=== PATIENT | female | born 2000 | race African-American/Black ===

== ENCOUNTER 2018-02-08 13:49 | Emergency (ER) | payer OTHER ==
--- NOTE | 2018-02-08 15:36 | ULT ---
OBSTETRIC SONOGRAM TRANSABDOMINAL IMAGING 02/08/18 HISTORY: First Trimester . Pelvic pain. FINDINGS: Single intrauterine gestation in variable presentation. Amniotic fluid is within normal limits. Heart motion at 182 beats per minute. Early gestational age limits anatomic detail. No free fluid within t he pelvis. Left ovarian follicle is 2.1 cm. Right ovary is 3.4 cm. Good color and spectral doppler fl ow within each ovary. Measurements correlate with 10 weeks, 1 day gestational age giving an estimated date of delivery of . IMPRESSION: Single viable intrauterine gestation with estimated gestational age based on today's sonogram of 10 w eeks, 1 day. No significant abnormalities are demonstrated. POS: [facility]
== END 2018-02-08 15:40 | disposition home or self-care (01) ==
LOC: ERS 13:49
DX: O99.89 Other specified diseases and conditions complicating pregnancy, childbirth and the puerperium (principal); R10.32 Left lower quadrant pain; O16.1 Unspecified maternal hypertension, first trimester; O99.511 Diseases of the respiratory system complicating pregnancy, first trimester; J45.909 Unspecified asthma, uncomplicated; Z3A.08 8 weeks gestation of pregnancy
CPT/HCPCS: 76856; 93976

== ENCOUNTER 2018-05-30 21:05 | Inpatient (IN) | payer OTHER ==
[2018-05-30] MEDS ORDERED: Ondansetron PF 4 MG/2 ML Vial IVP PRN (21:25)
[2018-05-30] MEDS ORDERED: cefTRIAXone\\ROCEPHIN 1 GM in Sodium Chloride 0.9% 100 ML IVPB SCH (21:30)
[2018-05-30] MEDS ORDERED: Lactated Ringer's 1,000 ML IV SCH (21:30)
[2018-05-30] MEDS ORDERED: Acetaminophen 500 MG TAB PO PRN (23:14)
[2018-05-30] MEDS ORDERED: Zolpidem Tartrate 5 MG TAB PO PRN (23:15)
[2018-05-30] MEDS ORDERED: Morphine 4 MG/ML VIAL SLOW IVP PRN (23:46)
[2018-05-31] MEDS: Morphine 10 MG/ML VIAL SLOW IVP PRN ×3 (01:59→16:07)
[2018-05-31] MEDS: Lactated Ringer's 1,000 ML IV SCH ×7 (03:41→21:26)
[2018-05-31 06:30] LABS: #Basophils 0.1 thou/uL (0.0-0.2); #Eosinphils 0.4 thou/uL (0.0-0.7); #Lymphocytes 3.8 thou/uL (1.20-3.40); #Monocytes 1.1 thou/uL (0.11-0.59); #Neutrophils 9.6 thou/uL (1.40-6.50); %Basophils 0.4 % (0.0-1.0); %Eosinophils 2.6 % (0.0-10.0); %Lymphocytes 25.6 % (28.0-48.0); %Monocytes 7.5 % (0.0-4.0); %Neutrophils 63.9 % (31.0-61.0); Hemoglobin 8.7 g/dL (12.0-16.0); Mean Corpuscular HGB CONC 32.8 g/dL (32.0-36.0); Mean Corpuscular Hemoglobin 25.7 pg (25.0-35.0); Mean Corpuscular Volume 78.3 fL (78.0-98.0); Mean Platelet Volume 7.6 fL (7.4-10.4); Platelet Count 340 thou/uL (130-400); RBC Distribution Width 13.1 % (11.5-14.5); Red Blood Cell (RBC) Count 3.38 mill/uL (4.00-5.20)
[2018-05-31] MEDS: cefTRIAXone\\ROCEPHIN 2 GM in Sodium Chloride 0.9% 100 ML IVPB SCH (09:21)
--- NOTE | 2018-05-31 10:15 | PRG ---
DATE OF SERVICE: 05/31/2018 SUBJECTIVE: The patient is a 18-year-old who was admitted last night with pyelonephritis. Over the course of the night, the patient has remained afebrile, but reports that her CVA tenderness has worsened and has moved to both sides. She denies nausea or vomiting, was unable to sleep due to pain. The patient did receive morphine earlier in the evening with some comfort, but it wore off after about an hour and a half. Over the course of the night, the patient had wheezing, which resolved with DuoNeb treatment. OBJECTIVE: VITAL SIGNS: This morning, blood pressure 114/76, pulse of 57, respiratory rate of 20, temperature is 97.9, saturating 97% on room air. GENERAL: The patient appears to be in no acute distress. She is alert and oriented, cooperative, and pleasant to interact with. CVA tenderness has moved to her right side and seems to be worsened on the left, and has suprapubic tenderness. LABORATORY DATA: White count is up from last night to 15,000, hemoglobin 8.7, hematocrit 26.5, platelet 340,000. ASSESSMENT AND PLAN: The patient is a 18-year-old female with an intrauterine at 26 weeks and 6 days, here for pyelonephritis. She got a total of 2 g of Rocephin last night. Although, she has not had any fevers, clinical history appears to not have turned the corner and we we will keep her for one more dose of Rocephin tonight. If she remains afebrile, the patient will be discharged tomorrow. Job ID: [id number]
--- NOTE | 2018-05-31 12:51 | HP ---
OB ADMISSION/OBSERVATION PRIMARY MARGARINE MAKER: Jazmín Leonard MD CHIEF COMPLAINT: Pelvic pain and back pain and diagnosis of pyelonephritis from an outside facility. HISTORY OF PRESENT ILLNESS: The patient is a 18-year-old G1, P0 female with an intrauterine at 26th week, who presented to the emergency room in [facility] with one-day history of sharp pelvic pain and the patient reports the pains were sharp in nature and is associated with movement and activity. During the evaluation, the patient was noted to have left CVA tenderness at the outside facility and subsequently diagnosed with pyelonephritis with UA showing pyuria. The patient denies fever at home. She denies nausea, vomiting or chest pain. She does report shortness of breath at times as the patient is asthmatic and uses albuterol inhaler about twice a week. She denies diarrhea or constipation. She denies any rashes. Denies hip problems, knee problems or muscle weakness. The patient denies any vaginal bleeding or leakage of fluid and denies any urinary urgency. PAST MEDICAL HISTORY: Significant for asthma. PAST SURGICAL HISTORY: She has had left knee surgery. SOCIAL HISTORY: Denies drug, alcohol, or tobacco use. OB LABS: Unavailable at the time of dictation. MEDICATIONS: The patient received 1 L of normal saline, 1000 mg of Tylenol and 1 g of Rocephin at the outside facility, and vitamins at home, albuterol inhaler. REVIEW OF SYSTEMS: Per HPI. OB LABS: Medical record shows syphilis nonreactive. GC and Chlamydia negative, hepatitis B surface antigen negative, HIV negative, all first trimester and she is rubella immune. PHYSICAL EXAMINATION: VITAL SIGNS: Blood pressure 115/76, temperature 97.8, pulse of 69, respiratory rate of 20, O2 saturations of 98% on room air. GENERAL: She appears to be in no acute distress. She is alert and oriented, cooperative, and pleasant to interact with. HEAD: Normocephalic and atraumatic. LUNGS: Clear to auscultation bilaterally. HEART: Regular rate and rhythm. ABDOMEN: Gravid. She has tenderness bilaterally in her lower pelvis with deviation of the uterus to either side. She has left CVA tenderness to palpation, no vertebral tenderness, no right-sided CVA tenderness. EXTREMITIES: Nontender, nonedematous. : Exam has been deferred. However, it is reported to have a closed cervix by her initial ER examination. heart tracing performed. Patient is noted to have a baseline in the 140s with moderate long-term variability, and appropriate for 26-week gestation. The tocometer shows irritability, although not felt by the patient. LABORATORY DATA: CBC was drawn at the outside facility, white count of 13.8, hemoglobin of 9.4, hematocrit of 28.7, platelets of 381,000, she has 70.5% neutrophils. BMP has sodium of 138, potassium of 3.5, chloride of 109, bicarb of 21, creatinine of 0.6, glucose of 93, AST of 14, ALT of 7, calcium 9.3. urinalysis demonstrates moderate blood with moderate leukocyte esterase, 21 to 50 red blood cells, 11 to 20 white blood cells, 1+ bacteria. ASSESSMENT AND PLAN: The patient is a 18-year-old female G1, P0, with an intrauterine at 26 weeks and 5 days, with early pyelonephritis as evidenced by a slightly elevated white count, pyuria, and left costovertebral angle tenderness. The patient received 1 gram of Rocephin at the outlying facility. I will give her 1 more gram of Rocephin here and admit her to observation to evaluate for fever overnight. Should the patient remain afebrile through the night, the patient will be discharged to home tomorrow with instructions to follow up with her primary OB in 1 to 2 days and with outpatient antibiotics. at this time is reassuring for gestational age and Dr. Leonard has been made aware of Albrecht' presence and will be updated in the morning. Job ID: [id number]
[2018-06-01] MEDS: Lactated Ringer's 1,000 ML IV SCH ×3 (01:30→11:06)
[2018-06-01] MEDS ORDERED: HYDROcodone/Acetaminophen 5/325 mg Tablet PO PRN ×2 (01:38→05:19)
[2018-06-01] MEDS ORDERED: Cyclobenzaprine 10 MG TAB PO PRN (01:38)
[2018-06-01 08:04] VITALS: BP 109/65; TEMP 98.3
--- NOTE | 2018-06-01 10:47 | PRG ---
DATE OF SERVICE: 06/01/2018 SUBJECTIVE: The patient has had worsening back pain overnight, left more than right and includes the entirety of her back. She reports the pain is not radiating and is constant in nature. She does report this pain in her upper back is different from the pain in her lower back. She denies any vaginal bleeding or other concerns. Her baby continues to move well. The patient received a dose of Flexeril and [place] overnight which brought her pain from 10 to 7. Prior to that, she was on Morphine, which she reports did not help. PHYSICAL EXAMINATION: VITAL SIGNS: The patient has remained afebrile overnight and throughout her stay. Temperature 98.4, pulse 76, respiratory rate 20, blood pressure 130/62. GENERAL: Awake, alert, in no acute distress. LUNGS: Nonlabored. ABDOMEN: Soft and nontender. BACK: Tenderness to palpation from her scapula all the way down to her low back on her left side, no CVA tenderness on her right, but she does have CVA tenderness on the left. ASSESSMENT AND PLAN: A 18-year-old in her 26th week of admitted for pyelonephritis. She has received Rocephin and continued to remain afebrile. Clinically, her pain has worsened; however, it appears to be more of musculoskeletal in origin. We will continue her on Flexeril and increase her dose of [place] to 2 tablets to see if that decreases her pain. She will likely be able to be discharged home later today with prescription for Keflex 500 mg b.i.d. for 7 days and to follow up with Dr. Leonard next week. The patient is in agreement with this. Job ID: [id number] [facility]
[2018-06-01] MEDS: cefTRIAXone\\ROCEPHIN 2 GM in Sodium Chloride 0.9% 100 ML IVPB SCH (10:59)
--- NOTE | 2018-06-04 08:32 | DIS ---
DATE OF ADMISSION: 05/31/2018 DATE OF DISCHARGE: 06/01/2018 ADMITTING DIAGNOSES: 1. Pyelonephritis. 2. Intrauterine at 26 weeks. DISCHARGE DIAGNOSES: 1. Pyelonephritis. 2. Intrauterine at 26 weeks. PROCEDURE: None. COMPLICATIONS: None. HOSPITAL COURSE: The patient is a 18-year-old G1, P0 female who was transferred from [facility] with concerns of pyelonephritis and , was admitted for IV antibiotic administration. On hospital day #2, the patient continues to have significant CVA tenderness with new onset tenderness on the opposite side. Decision at that time was that the patient remained afebrile, was to continue IV antibiotic administration. Today is hospital day #3. She does feel a lot better, though she continues to have some CVA tenderness and continues to be afebrile. PHYSICAL EXAMINATION: The patient on the morning of discharge: VITAL SIGNS: Blood pressure 109/65, temperature 96.3, pulse 56, respiratory rate of 20, saturating 96% on room air. GENERAL: She appears to be in no acute distress. She is alert and oriented, cooperative, and pleasant to interact with. MUSCULOSKELETAL: She does have upper back muscle tenderness, which is new from admission, likely due to prolonged stay in her bed. Her CVA tenderness is improved from my previous exam; though it is still present. The patient is being discharged to home with Keflex 500 mg to be taken twice a day for the next week. She also has instructions to seek medical attention should she experience fever, experience any pain, rigors. She will follow up with her Primary OB, Dr. Leonard. Job ID: [id number]
== END 2018-06-01 11:17 | disposition home or self-care (01) | DRG 832 ==
LOC: L&D/OP 21:05 → 3SE 05-31 00:23
PROVIDERS: ADMIT Obstetrics & Gynecology; ATTEND Obstetrics & Gynecology
DX: O23.02 Infections of kidney in pregnancy, second trimester (principal); N12 Tubulo-interstitial nephritis, not specified as acute or chronic; Z3A.26 26 weeks gestation of pregnancy; J45.909 Unspecified asthma, uncomplicated; O99.512 Diseases of the respiratory system complicating pregnancy, second trimester; Z79.51 Long term (current) use of inhaled steroids
CPT/HCPCS: 36415; 85025; 94640; 99285; J0696; J2270; J2405; J7050; J7620

== ENCOUNTER 2018-06-18 15:27 | Inpatient (IN) | payer OTHER ==
[2018-06-18 16:01] VITALS: BMI 25.4
[2018-06-18 17:43] LABS: Bilirubin Negative (Negative); Blood, Urine Negative (Negative); Clarity CLEAR (Clear); Glucose, Urine (Dipstick) Negative (Negative); Leukocyte Moderate (Negative); Nitrite Negative (Negative); Protein, Urine (Dipstick) Negative (Neg-Trace); Specific Gravity, Urine 1.018 (1.002-1.036)
[2018-06-18 17:45] LABS: Bacteria/HPF None Seen HPF (None Seen); RBC/HPF 0-3 HPF (0-3)
[2018-06-18 17:57] LABS: Hyaline Casts/LPF NONE SEEN LPF (0-3 Hyaline)
[2018-06-18 17:58] LABS: Renal Epithelial None Seen HPF (0-3); Transitional Epithelial NONE SEEN HPF (0-3)
[2018-06-18] MEDS ORDERED: Zolpidem Tartrate 5 MG TAB PO PRN (18:43)
[2018-06-18] MEDS ORDERED: Acetaminophen 325 MG TAB PO PRN (18:43)
[2018-06-18] MEDS ORDERED: HYDROcodone/Acetaminophen 5/325 mg Tablet PO PRN (18:43)
[2018-06-18] MEDS ORDERED: Ondansetron ODT 4 MG TAB PO PRN (18:43)
--- NOTE | 2018-06-18 18:54 | HP ---
TIME OF ADMISSION: 1815 hours. REASON FOR ADMISSION: Pyelonephritis at 29 weeks. HISTORY OF PRESENT ILLNESS: Ms. Albrecht presents for a second admission for pyelonephritis in this . She was previously admitted on the 31 of May. The patient reports worsening of her left flank pain and gross hematuria at this time. She denies rupture of membranes. She reports an active fetus. She sees Dr. Jazmín Leonard at [facility]. DIRECTOR ADVERTISING HISTORY: G1, P0. JENA placed her at 29-1/2 weeks' gestation. Antepartum records not available on the unit. PAST MEDICAL HISTORY: Pyelonephritis at 26 weeks. Urine culture was no growth. The patient was discharged home on Keflex. PAST SURGICAL HISTORY: Left knee surgery. SOCIAL HISTORY: Denies tobacco, alcohol, or IV drug use. MEDICATIONS: vitamins. FAMILY HISTORY: Noncontributory. REVIEW OF SYSTEMS: Noncontributory. PHYSICAL EXAMINATION: GENERAL: White female. VITAL SIGNS: Temperature 98.5, respirations 18, pulse 96, and blood pressure 118/72. HEENT: Within normal limits. LUNGS: Clear to auscultation bilaterally. HEART: Regular rate and rhythm. BREASTS: No masses bilaterally. ABDOMEN: Soft. She has some guarding with deep palpation in the left lower quadrant and moderate CVAT on that side. The patient has significant vaginal discharge noted at the time of catheterization. PELVIC: Deferred. CERVICAL: Deferred. EXTREMITIES: Without clubbing, cyanosis, or edema. LABORATORY DATA: The patient has a white count of 14.9, which is higher than it was with her previous admission with 78% neutrophils, hematocrit of 30%. Basic metabolic within normal limits. Cath UA reveals moderate leukocyte esterase, 11 to 20 wbc's, no rbc's, and positive for trichomonads on the urinalysis. VPIII is pending. RADIOLOGY REPORTS: Ultrasound for obstetric as well as renal ultrasound is pending at this time. IMPRESSION: 1. Probable pyelonephritis, early without fever at this time, in early third trimester , recurrent. 2. Likely Trichomonas vaginitis, although urinalysis is not diagnostic for this and await VPIII results. PLAN: 1. Admission. 2. IV hydration. 3. IV Rocephin. 4. IV gentamicin. 5. Urine culture sent on current specimen, although the patient received Rocephin IM in [facility]. 6. Followup ultrasound results. Job ID: [id number]
[2018-06-18] MEDS: Sodium Chloride 0.9% 1,000 ML IV SCH (19:35)
--- NOTE | 2018-06-18 19:59 | ULT ---
RENAL ULTRASOUND: 06/18/2018 PROVIDED CLINICAL HISTORY: Recurrent pyelonephritis. FINDINGS: The right kidney measures about 10.9 x 4.9 x 6.1 cm and demonstrates moderate hydronephrosis. No dacia dence for mass. The left kidney measures about 9.5 x 5.4 x 5.3 cm and demonstrates no evidence for hydronephrosis or mass. The urinary bladder demonstrates minimal mobile debris. No wall thickening or other sonographic abno rmality is apparent. Bilateral ureteral jets are seen. Post void images demonstrate persistent right-sided hydronephrosis. There is a post void residual of approximately 1.9 mL. IMPRESSION: Right hydronephrosis. POS: [facility]
--- NOTE | 2018-06-18 20:03 | ULT ---
OB ULTRASOUND: 06/18/2018 PROVIDED CLINICAL HISTORY: Pyelonephritis. FINDINGS: A single live intrauterine gestation is documented in a cephalic presentation, with a heart rate of 1 53 beats per minute. The placenta is anteriorly located without evidence for previa. anatomic survey is normal, with the head, intracranial structures, four chamber heart, stomach, situs, kidney s, bladder, umbilical cord, cord insertion, spine, lips, nose, and extremities demonstrated. Estimat ed gestational age, based on today's examination, is 29 weeks 2 days. Estimated weight is 1188 g, plus or minus 176 g. Amniotic fluid index is 16.1. BIOMETRY: BPD: 30 weeks 3 days (7.57 cm). HEAD CIRCUMFERENCE: 30 weeks 5 days (28.02 cm). ABDOMIANL CIRCUMFERENCE: 27 weeks 4 days (23.23 cm). FEMUR LENGTH: 28 weeks 0 days (5.26 cm). IMPRESSION: 1. A single live intrauterine gestation, as described above. 2. Head circumference to abdominal circumference ratio is somewhat elevated, which could reflect justin wth restriction, though ultrasound dates are concordant with clinical dates. POS: [facility]
[2018-06-18] MEDS: HYDROcodone/Acetaminophen 5/325 mg Tablet PO PRN (21:03)
[2018-06-18] MEDS: Gentamicin Sulfate 80 MG in Premix Bag 1 BAG IVPB SCH (21:06)
[2018-06-19] MEDS: Sodium Chloride 0.9% 1,000 ML IV SCH ×3 (06:26→20:28)
[2018-06-19] MEDS: cefTRIAXone\\ROCEPHIN 2 GM in Sodium Chloride 0.9% 100 ML IVPB SCH (06:27)
[2018-06-19 06:48] LABS: #Basophils 0.1 thou/uL (0.0-0.2); #Eosinphils 0.3 thou/uL (0.0-0.7); #Lymphocytes 3.4 thou/uL (1.20-3.40); #Neutrophils 8.8 thou/uL (1.40-6.50); %Basophils 0.8 % (0.0-1.0); %Eosinophils 2.3 % (0.0-10.0); %Lymphocytes 24.9 % (28.0-48.0); %Monocytes 7.5 % (0.0-4.0); %Neutrophils 64.6 % (31.0-61.0); Hemoglobin 8.2 g/dL (12.0-16.0); Mean Corpuscular HGB CONC 31.3 g/dL (32.0-36.0); Mean Corpuscular Hemoglobin 23.5 pg (25.0-35.0); Mean Corpuscular Volume 75.3 fL (78.0-98.0); Mean Platelet Volume 7.4 fL (7.4-10.4); Platelet Count 320 thou/uL (130-400); RBC Distribution Width 13.2 % (11.5-14.5); Red Blood Cell (RBC) Count 3.47 mill/uL (4.00-5.20); White Blood Cell (WBC) Count 13.6 thou/uL (4.8-10.8)
[2018-06-19 07:09] LABS: Anion Gap 13 mmol/L (10-20); BUN (Urea Nitrogen) 7 mg/dL (7.0-18.7); Calc. Creatinine Clearance 165 mL/min (70-130); Calcium 8.4 mg/dL (7.8-10.44); Carbon Dioxide 18 mmol/L (22-29); Chloride 108 mmol/L (98-107); Estimated GFR-MDRD Greater than 90; Glucose 72 mg/dL (70-105); Potassium 3.6 mmol/L (3.5-5.1); Sodium 135 mmol/L (136-145)
[2018-06-19] MEDS ORDERED: Iron Sucrose Complex 500 MG in Sodium Chloride 0.9% 250 ML 250 ML IVPB SCH (07:15)
--- NOTE | 2018-06-19 08:23 | PRG ---
DATE OF SERVICE: 06/19/2018 SUBJECTIVE: The patient is admitted for pyelonephritis at 29 weeks gestation. The patient reports that her pain is much better. She feels much better than yesterday. OBJECTIVE: VITAL SIGNS: Stable. She has been afebrile since admission, pulse 85, respirations 18, temperature 98.6, blood pressure 118/72. FHTs 140s. ABDOMEN: Physical exam reveals decreased tenderness in the left lower quadrant and decreased CVA tenderness. LABORATORY DATA: Vaginitis screen was positive for Trichomonas. The patient's hematocrit was 26%. White count is down to 13,000 this morning. IMPRESSION: 1. Pyelonephritis, second episode, early third trimester. 2. Trichomonas vaginitis. 3. Iron deficiency anemia. PLAN: 1. Continue Rocephin and gentamicin. Anticipate possible discontinuation at 48 hours of oral medicines on discharge and suppression for the rest of the . Await urine culture results. 2. I will treat Trichomonas vaginitis with Flagyl 500 p.o. x2 doses. 3. We will administer IV iron 500 mg for iron deficiency anemia. Job ID: [id number]
[2018-06-19] MEDS: metroNIDAZOLE 500 MG TAB PO SCH ×2 (08:53→21:45)
[2018-06-19] MEDS: Gentamicin Sulfate 80 MG in Premix Bag 1 BAG IVPB SCH ×2 (08:53→21:45)
[2018-06-19] MEDS: HYDROcodone/Acetaminophen 5/325 mg Tablet PO PRN ×2 (09:49→20:33)
[2018-06-19] MEDS: Iron, Sodium Ferric Gluconate 250 MG in Sodium Chloride 0.9% 250 ML 250 ML IVPB SCH ×2 (11:07→23:09)
[2018-06-19] MEDS: Ondansetron PF 4 MG/2 ML Vial IVP PRN (16:41)
[2018-06-20] MEDS: Ondansetron PF 4 MG/2 ML Vial IVP PRN (04:52)
[2018-06-20] MEDS: cefTRIAXone\\ROCEPHIN 2 GM in Sodium Chloride 0.9% 100 ML IVPB SCH (06:00)
[2018-06-20] MEDS: Sodium Chloride 0.9% 1,000 ML IV SCH ×3 (06:11→18:42)
--- NOTE | 2018-06-20 06:50 | PDOC.EVN ---
Event Note - Event Note Event Note: HD 2 ABX: Rocephin and Gent DX: Suspected Pyelo, Trich vaginalis; 29 week Patient is a 18yo G1 at 29-30 weeks with suspected pyelo (#2). Renal sono was negative. S, States she feels much better, Good FM, npo UTI SXS O. Flagyl has been given. Afebrile since admit BPs stable UCX with NGTD PE: NAD Abd soft, NT A/P: Suspected pyelo at admit but UCX NGTD: Plan: 1. continue emperic ABX until UCX back today as final 2. Likely keep today as this is second RX for presumed pyelo 3. WBC pending this am...WBC 13 on admit 4. Plan D/W patient and family member in room Likely send home on macrobid suppression...RX in chart
[2018-06-20 07:40] LABS: #Basophils 0.1 thou/uL (0.0-0.2); #Eosinphils 0.5 thou/uL (0.0-0.7); #Lymphocytes 2.3 thou/uL (1.20-3.40); #Monocytes 1.3 thou/uL (0.11-0.59); #Neutrophils 12.8 thou/uL (1.40-6.50); %Basophils 0.7 % (0.0-1.0); %Lymphocytes 13.5 % (28.0-48.0); %Monocytes 7.6 % (0.0-4.0); %Neutrophils 75.3 % (31.0-61.0); Hemoglobin 9.2 g/dL (12.0-16.0); Mean Corpuscular HGB CONC 31.9 g/dL (32.0-36.0); Mean Corpuscular Hemoglobin 24.2 pg (25.0-35.0); Mean Corpuscular Volume 75.8 fL (78.0-98.0); Mean Platelet Volume 7.9 fL (7.4-10.4); Platelet Count 377 thou/uL (130-400); RBC Distribution Width 13.5 % (11.5-14.5); Red Blood Cell (RBC) Count 3.81 mill/uL (4.00-5.20)
--- NOTE | 2018-06-20 08:00 | PDOC.EVN ---
Event Note - Event Note Event Note: Lab Check: This AM WBC was 17, with increased PMNs. We will recheck tomorrow AM run
--- NOTE | 2018-06-20 08:08 | PDOC.EVN ---
Event Note - Event Note Event Note: Chart review reveals no GC or chlamydia at admit. I have ordered a PCR for both via voided sample. Dr Altman to assume care today
[2018-06-20] MEDS: Gentamicin Sulfate 80 MG in Premix Bag 1 BAG IVPB SCH ×2 (09:02→21:33)
[2018-06-20] MEDS: HYDROcodone/Acetaminophen 5/325 mg Tablet PO PRN ×2 (10:14→18:41)
[2018-06-21] MEDS: Sodium Chloride 0.9% 1,000 ML IV SCH (02:44)
[2018-06-21] MEDS: cefTRIAXone\\ROCEPHIN 2 GM in Sodium Chloride 0.9% 100 ML IVPB SCH (06:00)
[2018-06-21 06:27] LABS: #Basophils 0.1 thou/uL (0.0-0.2); #Eosinphils 0.4 thou/uL (0.0-0.7); #Lymphocytes 2.5 thou/uL (1.20-3.40); #Neutrophils 7.7 thou/uL (1.40-6.50); %Basophils 0.6 % (0.0-1.0); %Eosinophils 3.7 % (0.0-10.0); %Lymphocytes 21.5 % (28.0-48.0); %Monocytes 8.7 % (0.0-4.0); %Neutrophils 65.4 % (31.0-61.0); Hemoglobin 7.8 g/dL (12.0-16.0); Mean Corpuscular HGB CONC 32.1 g/dL (32.0-36.0); Mean Corpuscular Hemoglobin 24.5 pg (25.0-35.0); Mean Corpuscular Volume 76.3 fL (78.0-98.0); Mean Platelet Volume 7.6 fL (7.4-10.4); Platelet Count 290 thou/uL (130-400); RBC Distribution Width 13.4 % (11.5-14.5); Red Blood Cell (RBC) Count 3.18 mill/uL (4.00-5.20); White Blood Cell (WBC) Count 11.7 thou/uL (4.8-10.8)
[2018-06-21] MEDS: HYDROcodone/Acetaminophen 5/325 mg Tablet PO PRN (06:38)
[2018-06-21 08:26] VITALS: BP 108/70; TEMP 98.1
[2018-06-21] MEDS: Gentamicin Sulfate 80 MG in Premix Bag 1 BAG IVPB SCH (10:21)
[2018-06-22 03:20] LABS: Chlamydia by PCR Not Detected (NotDetected); GC by PCR Not Detected (NotDetected)
--- NOTE | 2018-06-22 04:11 | DIS ---
DATE OF ADMISSION: 06/18/2018 DATE OF DISCHARGE: 06/21/2018 DIAGNOSES: 1. A 29-week intrauterine . 2. Pyelonephritis. 3. Trichomonas. PROCEDURES: 1. ultrasound. 2. Renal ultrasound. 3. IV antibiotics. HOSPITAL COURSE: The patient was admitted on 06/18/2018 for probable pyelonephritis after presenting with back pain and abdominal pain. She was afebrile, but has been here before for similar complaints. She was also incidentally positive for trichomonas on VPIII and urinalysis, and was treated. On hospital day #3, she remained afebrile and her white count improved after an initial spike to 17,000 back down to 11.7. Her urine culture had no growth after 48 hours and the patient improved clinically and was meeting milestones for discharge. DISCHARGE MEDICATIONS: Macrobid 100 mg daily for suppression. FOLLOWUP: With Dr. Leonard next week as scheduled or before that if needed. Job ID: [id number]
--- NOTE | 2018-06-22 10:46 | PDOC.EVN ---
Event Note - Event Note Event Note: [facility]: Post-discharge note: Lab check: I was asked to follow up on GC and CHL PCR from 06/20. Results checked now by me...results are both not "not detected"
== END 2018-06-21 12:58 | disposition home or self-care (01) | DRG 832 ==
LOC: L&D/OP 15:27 → L&D 18:48 → 3SW 20:04
PROVIDERS: ADMIT Obstetrics & Gynecology; ATTEND Obstetrics & Gynecology
DX: O23.03 Infections of kidney in pregnancy, third trimester (principal); N12 Tubulo-interstitial nephritis, not specified as acute or chronic; O98.313 Other infections with a predominantly sexual mode of transmission complicating pregnancy, third trimester; A59.9 Trichomoniasis, unspecified; O99.013 Anemia complicating pregnancy, third trimester; D50.9 Iron deficiency anemia, unspecified; Z3A.29 29 weeks gestation of pregnancy
CPT/HCPCS: 36415; 76770; 76805; 80048; 85025; 87086; 87480; 87491; 87510; 87591; 87660; A4353; J0696; J1580; J2405; J2916; J7050

== ENCOUNTER 2018-08-27 02:10 | Inpatient (IN) | payer OTHER ==
[2018-08-27 02:54] VITALS: BMI 26.7
[2018-08-27 03:21] LABS: Amnisure Internal Control QC ACCEPTABLE (ACCEPTABLE); Amnisure Test No Membranes Rupture (No Rupture)
[2018-08-27 03:44] LABS: #Basophils 0.1 thou/uL (0.0-0.2); #Eosinphils 0.4 thou/uL (0.0-0.7); #Lymphocytes 2.5 thou/uL (1.20-3.40); #Neutrophils 11.1 thou/uL (1.40-6.50); %Basophils 0.6 % (0.0-1.0); %Eosinophils 2.8 % (0.0-10.0); %Lymphocytes 16.3 % (28.0-48.0); %Monocytes 6.9 % (0.0-4.0); %Neutrophils 73.3 % (31.0-61.0); Hemoglobin 11.4 g/dL (12.0-16.0); Mean Corpuscular HGB CONC 33.8 g/dL (32.0-36.0); Mean Corpuscular Volume 80.1 fL (78.0-98.0); Mean Platelet Volume 8.2 fL (7.4-10.4); Platelet Count 331 thou/uL (130-400); RBC Distribution Width 18.4 % (11.5-14.5); Red Blood Cell (RBC) Count 4.22 mill/uL (4.00-5.20); White Blood Cell (WBC) Count 15.1 thou/uL (4.8-10.8)
[2018-08-27 03:45] LABS: Bilirubin Negative (Negative); Blood, Urine Negative (Negative); Clarity CLEAR (Clear); Glucose, Urine (Dipstick) Negative (Negative); Leukocyte Large (Negative); Nitrite Negative (Negative); Protein, Urine (Dipstick) Negative (Neg-Trace); Specific Gravity, Urine 1.014 (1.002-1.036)
[2018-08-27 03:48] LABS: Bacteria/HPF None Seen HPF (None Seen); Hyaline Casts/LPF 0-3 HYALINE CAST LPF (0-3 Hyaline); Pathc Cast-AUWi Flag 0.43 (0-2.49); Squamous Epithelial 0-3 HPF (0-3); WBC/HPF 21-50 HPF (0-3)
[2018-08-27 03:51] LABS: Oval Fat Bodies/HPF None Seen HPF (None Seen); Renal Epithelial None Seen HPF (0-3); Sperm/HPF None Seen HPF (None Seen); Transitional Epithelial NONE SEEN HPF (0-3); Trichomonas/HPF None Seen HPF (None Seen); Yeast-All Forms None Seen HPF (None Seen)
[2018-08-27 04:05] LABS: ALT (SGPT) 14 U/L (8-55); AST (SGOT) 19 U/L (5-34); Albumin 3.9 g/dL (3.5-5.0); Alkaline Phosphatase 188 U/L (40-150); Anion Gap 13 mmol/L (10-20); BUN (Urea Nitrogen) 12 mg/dL (7.0-18.7); Bilirubin, Total 0.4 mg/dL (0.2-1.2); Calc. Creatinine Clearance 143 mL/min (70-130); Calcium 9.7 mg/dL (7.8-10.44); Carbon Dioxide 21 mmol/L (22-29); Chloride 106 mmol/L (98-107); Estimated GFR-MDRD Greater than 90; Globulin 3.3 g/dL (2.4-3.5); Glucose 71 mg/dL (70-105); Potassium 4.3 mmol/L (3.5-5.1); Protein, Total 7.2 g/dL (6.0-8.3); Sodium 136 mmol/L (136-145)
[2018-08-27] MEDS ORDERED: NS / Oxytocin 40 units/1000ml 1,000 ML IV PRN (04:16)
[2018-08-27] MEDS ORDERED: Meperidine HCl/PF 25 MG/ML VIAL IM/IV PRN (04:16)
[2018-08-27] MEDS ORDERED: Promethazine HCl 25 MG/ML VIAL IM PRN ×2 (04:16→06:04)
[2018-08-27] MEDS ORDERED: Butorphanol Tartrate 1 MG/ML VIAL SLOW IVP PRN (04:16)
[2018-08-27] MEDS ORDERED: Ondansetron PF 4 MG/2 ML Vial IVP PRN ×3 (04:16→13:50)
[2018-08-27] MEDS ORDERED: Zolpidem Tartrate 5 MG TAB PO PRN ×2 (04:16→13:50)
[2018-08-27] MEDS ORDERED: Lidocaine 1% (PF) 30 ML VIAL SC PRN (04:16)
[2018-08-27] MEDS ORDERED: HYDROcodone/Acetaminophen 5/325 mg Tablet PO PRN ×3 (04:16→13:50)
[2018-08-27] MEDS ORDERED: Acetaminophen 500 MG TAB PO PRN (04:16)
[2018-08-27] MEDS ORDERED: Ibuprofen 800 MG TAB PO PRN (04:16)
--- NOTE | 2018-08-27 04:25 | PDOC.LDHP ---
Labor and Delivery H&P Chief complaint: contractions, loss of fluid HPI: 18 yo BF presents c/o ?LOF x 24 hrs, now with UCs q 5 mins. Current gestational age (weeks): 39 Due date: 08/31/18 Dating criteria: second trimester ultrasound Grav: 1 Para: 0 OB History Details: PNC with Dr. Leonard, elevated BPs over last 2 visits. Current complications: gestational hypertension Abnormal US findings: No Past Medical History: asthma Current medications: pre-juve vitamins, other (inhaler) Previous surgical history: other (left knee) Allergies/Adverse Reactions: Allergies Allergy/AdvReac Type Severity Reaction Status Date / Time [place] And Derivatives Allergy Intermediate Rash Verified 08/27/18 02:54 Penicillins Allergy Intermediate Rash Verified 08/27/18 02:54 Social history: none - Physical Exam Abnormal vital signs: initial BP= 161/111 General: NAD Lungs: nonlabored breathing Abdomen: gravid Extremeties: trace edema FHT: category 1, variability present [place] contractions every: q 3-5 mins - Vaginal Exam cm dilated: 2 Effacement: 90% Station: -1 - OB Labs Blood type: AB RH: negative Antibody Screen: negative HIV: negative RPR: negative 1 hour GCT: negative GBS: positive - Assessment L&D Assessment: term patient in labor (initial elevated BPs; CBC, CHEM20 and UA negative) - Plan Plan: admit to L&D, labor augmentation if indicated (Watch BP carefully, may require MgS04 if persists), GBS antibiotic prophylaxis
[2018-08-27] MEDS ORDERED: Lactated Ringer's 1,000 ML IV SCH (04:30)
[2018-08-27] MEDS: Lactated Ringer's 1,000 ML IV SCH ×2 (05:06→09:51)
[2018-08-27] MEDS ORDERED: Fentanyl 4 mcg/Bup 0.1% Cadd 100 ML ONE (05:18)
[2018-08-27] MEDS ORDERED: Lactated Ringer's 500 ML IV PRN (06:04)
[2018-08-27] MEDS ORDERED: diphenhydrAMINE 50 MG/ML VIAL IVP PRN (06:04)
[2018-08-27] MEDS ORDERED: ePHEDrine/0.9% NaCl/PF SYRINGE 50 mg/10 ml SLOW IVP PRN (06:04)
[2018-08-27] MEDS ORDERED: Naloxone HCl 0.4 mg/ml Vial IVP PRN ×2 (06:04)
[2018-08-27] MEDS ORDERED: Eucerin (Mineral Oil/Petrolatum,White) 30 gm Jar TOP PRN (06:04)
[2018-08-27] MEDS ORDERED: Acetaminophen 325 MG TAB PO PRN (06:04)
[2018-08-27] MEDS ORDERED: Fentanyl 4 mcg/Bupivacaine 0.1% Cassette 100 ML EPIDURAL SCH (06:15)
[2018-08-27] MEDS ORDERED: Communication Order-Pharmacy FS SCH (06:15)
[2018-08-27 08:03] LABS: HBSAg Index 0.19 S/CO (0-0.99); Hep B Surf Ag Non-Reactive S/CO (NonReactive)
[2018-08-27 08:04] LABS: Syphilis Antibody Nonreactive (Nonreactive); Syphilis Antibody Index 0.23 S/CO (<1.00 Non-Reactive)
[2018-08-27] MEDS ORDERED: Bupivacaine/Epinephrine 0.25% 30 ML VIAL ONE (11:50)
[2018-08-27] MEDS ORDERED: Lidocaine 1% (PF) 30 ML VIAL ONE (12:38)
--- NOTE | 2018-08-27 13:34 | OP ---
DATE OF PROCEDURE: 08/27/2018 TIME OF SERVICE: 12:45. PREDELIVERY DIAGNOSIS: Term labor imminent delivery. POSTDELIVERY DIAGNOSIS: Term labor imminent delivery. PROCEDURES PERFORMED: Spontaneous vaginal delivery with first-degree midline laceration. ANESTHESIA: Epidural. ESTIMATED BLOOD LOSS: 200 mL. COMPLICATIONS: None. OPERATIVE FINDINGS: 1. Vigorous male infant, Apgars and weight are pending, to nursery, delivered at 12:29. 2. Placenta delivered intact, 3-vessel cord at approximately 12:34. 3. Repair of first-degree midline laceration with [id number] of 2-0 chromic suture. DISPOSITION: Routine Recovery. DESCRIPTION OF PROCEDURE: The patient had a rapid progression of labor. Once she reached complete, complete. Dr. Leonard had been called for delivery. However, the patient was complete and +4 to 5 station, ready to push. I was called at 12:28 and presented to the room at 12:29. As soon as I got the gloves on, the patient delivered OA. No nuchal cord. Spontaneously in a controlled manner was placed on the maternal abdomen. After approximately 3 minutes, the cord was clamped and cut. Cord blood sample was obtained. Placenta delivered spontaneously, was noted to be grossly normal, intact, and 3-vessel. Inspection of the vagina revealed a first-degree midline laceration, which was repaired using a 2-0 chromic. The patient was entered into routine post delivery care. Job ID: [id number]
[2018-08-27] MEDS ORDERED: Milk Of Magnesia 30 ML UDCUP PO PRN (13:50)
[2018-08-27] MEDS ORDERED: diphenhydrAMINE 25 MG CAP PO PRN (13:50)
[2018-08-27] MEDS ORDERED: Lanolin Ointment 7 GM TUBE TOP PRN (13:50)
[2018-08-27] MEDS ORDERED: Bisacodyl 10 MG SUPP PR PRN (13:50)
[2018-08-27] MEDS ORDERED: NS / Oxytocin 40 units/1000ml 1,000 ML IV SCH (13:50)
[2018-08-27] MEDS ORDERED: Adacel (T-DAP) 0.5 ML SYRINGE IM ONE (13:50)
[2018-08-27] MEDS: Ibuprofen 800 MG TAB PO SCH (16:05)
[2018-08-27] MEDS: NS w/ Oxytocin 10 units 500 ML IV SCH (16:06)
[2018-08-27] MEDS: Ferrous Sulfate 325 MG TAB PO SCH (17:04)
[2018-08-27] MEDS: HYDROcodone/Acetaminophen 5/325 mg Tablet PO PRN (17:19)
--- NOTE | 2018-08-28 07:28 | PDOC.PP ---
Post Progress Note Post Day #: 1 PO intake tolerated: yes Flatus: yes Ambulation: yes Vital Signs (12 hours) Temp Pulse Resp BP Pulse Ox 08/27/18 20:00 98 08/27/18 19:58 98.2 F 62 18 145/85 H 98 Weight Weight 151 lb - Physical Examination Abdominal: + bowel sounds, lochia, no distention, appropriately TTP Result Diagrams: 08/27/18 03:27 08/27/18 03:27 Additional Labs: Post Labs Blood Type AB POSITIVE 08/27/18 03:31 Hep Bs Antigen Non-Reactive S/CO (NonReactive) 08/27/18 03:27 - Assessment/Plan post day 1-doing well. Routine care. Discharge in AM.
[2018-08-28] MEDS: HYDROcodone/Acetaminophen 5/325 mg Tablet PO PRN (07:38)
[2018-08-28] MEDS: Docusate Calcium (SURFAK) 240 MG CAP PO SCH ×3 (07:39→21:39)
[2018-08-28] MEDS: Ibuprofen 800 MG TAB PO SCH ×4 (07:39→21:39)
[2018-08-28] MEDS: Prenatal Vitamin 1 TAB PO SCH (07:39)
[2018-08-28] MEDS: Lactated Ringer's 1,000 ML IV SCH ×3 (07:44→23:53)
[2018-08-28] MEDS: NS w/ Oxytocin 10 units 500 ML IV SCH (07:46)
[2018-08-28] MEDS: Ferrous Sulfate 325 MG TAB PO SCH ×2 (11:51→15:51)
[2018-08-29] MEDS: Ibuprofen 800 MG TAB PO SCH (05:04)
[2018-08-29] MEDS: NS w/ Oxytocin 10 units 500 ML IV SCH (06:09)
[2018-08-29] MEDS: Lactated Ringer's 1,000 ML IV SCH (06:09)
--- NOTE | 2018-08-29 08:03 | PDOC.PP ---
Post Progress Note Flatus: yes Ambulation: yes Vital Signs (12 hours) Temp Pulse Resp BP Pulse Ox 08/28/18 20:14 98.0 F 74 16 117/69 97 Weight Weight 151 lb - Physical Examination Abdominal: + bowel sounds, lochia, no distention, appropriately TTP Result Diagrams: 08/27/18 03:27 08/27/18 03:27 Additional Labs: Post Labs Blood Type AB POSITIVE 08/27/18 03:31 Hep Bs Antigen Non-Reactive S/CO (NonReactive) 08/27/18 03:27 - Assessment/Plan Dpoing well post day 2. Ready for discharge. F/u 6 weeks post .
[2018-08-29] MEDS: Ferrous Sulfate 325 MG TAB PO SCH (08:20)
[2018-08-29 08:22] VITALS: BP 120/78; TEMP 98.1
[2018-08-29] MEDS: Prenatal Vitamin 1 TAB PO SCH (09:30)
[2018-08-29] MEDS: Docusate Calcium (SURFAK) 240 MG CAP PO SCH (09:31)
== END 2018-08-29 13:30 | disposition home or self-care (01) | DRG 807 ==
LOC: L&D/OP 02:10 → L&D 06:03 → 3SW 15:17
PROVIDERS: ADMIT Obstetrics & Gynecology; ATTEND Obstetrics & Gynecology
PROC: 10E0XZZ Delivery of Products of Conception, External Approach (ICD-10-PCS; principal; 2018-08-27)
PROC: 0HQ9XZZ Repair Perineum Skin, External Approach (ICD-10-PCS; 2018-08-27)
DX: O13.4 Gestational [pregnancy-induced] hypertension without significant proteinuria, complicating childbirth (principal); O70.0 First degree perineal laceration during delivery; Z37.0 Single live birth; Z3A.39 39 weeks gestation of pregnancy
CPT/HCPCS: 36415; 51702; 80053; 81003; 81015; 84112; 85025; 86780; 86850; 86900; 86901; 87340; 99285; J0690; J2001; J2405

== ENCOUNTER 2020-09-20 08:20 | Emergency (ER) | payer OTHER ==
[2020-09-20] MEDS ORDERED: Acetaminophen 500 MG TAB ONE (08:44)
[2020-09-20 09:01] LABS: Bacteria/HPF 2+ HPF (None Seen); Bilirubin Negative (Negative); Blood, Urine 2+ (Negative); Clarity Turbid (Clear); Glucose, Urine (Dipstick) Normal (Negative); Ketone, Urine Negative (Negative); Leukocyte 500 Leu/uL (Negative); Nitrite 2+ (Negative); Protein, Urine (Dipstick) 30 mg/dL (Neg-Trace); RBC/HPF Greater than 50 HPF (0-3); Specific Gravity, Urine 1.027 (1.002-1.036); Urobilinogen Normal mg/dL (Less than 2); WBC/HPF Greater than 50 HPF (0-3)
[2020-09-20] MEDS ORDERED: Cephalexin 250 MG CAP ONE (09:31)
[2020-09-20] MEDS ORDERED: Ondansetron ODT 4 MG TAB ONE (09:31)
== END 2020-09-20 09:40 | disposition home or self-care (01) ==
LOC: ERS 08:20
DX: O23.41 Unspecified infection of urinary tract in pregnancy, first trimester (principal); O99.511 Diseases of the respiratory system complicating pregnancy, first trimester; J45.909 Unspecified asthma, uncomplicated; Z3A.01 Less than 8 weeks gestation of pregnancy
CPT/HCPCS: 81003; 81015; 87086; 87186; 99284; Q0162

== ENCOUNTER 2020-09-30 09:22 | Emergency (ER) | payer OTHER ==
[2020-09-30] MEDS ORDERED: Ondansetron PF 4 MG/2 ML Vial ONE (10:34)
[2020-09-30 11:48] LABS: #Basophils 0.1 thou/uL (0.0-0.2); #Eosinphils 0.9 thou/uL (0.0-0.7); #Lymphocytes 1.8 thou/uL (1.20-3.40); #Monocytes 0.4 thou/uL (0.11-0.59); #Neutrophils 6.5 thou/uL (1.40-6.50); %Basophils 0.9 % (0.0-1.0); %Eosinophils 8.9 % (0.0-10.0); %Monocytes 4.4 % (0.0-10.0); %Neutrophils 66.8 % (42.0-75.0); Hemoglobin 12.1 g/dL (12.0-16.0); Mean Corpuscular HGB CONC 32.3 g/dL (32.0-36.0); Mean Corpuscular Hemoglobin 25.3 pg (27.0-31.0); Mean Corpuscular Volume 78.2 fL (78.0-98.0); Mean Platelet Volume 8.3 fL (7.4-10.4); Platelet Count 364 thou/uL (130-400); RBC Distribution Width 15.8 % (11.5-14.5); Red Blood Cell (RBC) Count 4.78 mill/uL (4.20-5.40); White Blood Cell (WBC) Count 9.7 thou/uL (4.8-10.8)
[2020-09-30 12:17] LABS: ALT (SGPT) 10 U/L (8-55); AST (SGOT) 29 U/L (5-34); Albumin 4.3 g/dL (3.5-5.0); Alkaline Phosphatase 81 U/L (40-110); Anion Gap 13 mmol/L (10-20); BUN (Urea Nitrogen) 9 mg/dL (7.0-18.7); Bilirubin, Total 0.6 mg/dL (0.2-1.2); Calc. Creatinine Clearance 0 mL/min (70-130); Calcium 9.1 mg/dL (7.8-10.44); Carbon Dioxide 23 mmol/L (22-29); Chloride 106 mmol/L (98-107); Glucose 84 mg/dL (70-105); Magnesium 1.8 mg/dL (1.6-2.6); Potassium 4.9 mmol/L (3.5-5.1); Protein, Total 8.3 g/dL (6.0-8.3); Sodium 137 mmol/L (136-145)
[2020-09-30 12:52] LABS: Bacteria/HPF 2+ HPF (None Seen); Bilirubin Negative (Negative); Blood, Urine Negative (Negative); Clarity Turbid (Clear); Glucose, Urine (Dipstick) Normal (Negative); Ketone, Urine 40 mg/dL (Negative); Leukocyte 250 Leu/uL (Negative); Nitrite Negative (Negative); Protein, Urine (Dipstick) 30 mg/dL (Neg-Trace); RBC/HPF 0-3 HPF (0-3); Specific Gravity, Urine 1.029 (1.002-1.036); WBC/HPF 21-50 HPF (0-3)
== END 2020-09-30 15:44 | disposition home or self-care (01) ==
LOC: ERS 09:22
DX: O21.0 Mild hyperemesis gravidarum (principal); O23.41 Unspecified infection of urinary tract in pregnancy, first trimester; O16.2 Unspecified maternal hypertension, second trimester; O99.511 Diseases of the respiratory system complicating pregnancy, first trimester; J45.909 Unspecified asthma, uncomplicated; Z79.51 Long term (current) use of inhaled steroids; Z79.899 Other long term (current) drug therapy; Z3A.01 Less than 8 weeks gestation of pregnancy
CPT/HCPCS: 80053; 81003; 81015; 83735; 84702; 85025; 96374; J2405

== ENCOUNTER 2021-03-01 | Emergency (ER) | payer OTHER | END 2021-03-01 10:34 | disposition home or self-care (01) ==

== ENCOUNTER 2021-03-30 00:57 | Emergency (ER) | payer OTHER | END 2021-03-30 03:08 | disposition left against medical advice (07) | LOC: ERS 00:57 | DX: Z53.21 Procedure and treatment not carried out due to patient leaving prior to being seen by health care provider (principal) ==